=== PATIENT | male | born 1995 | race Caucasian/White ===

== ENCOUNTER 2018-01-26 12:42 | Emergency (ER) | payer MEDICAID, SELFPAY ==
[2018-01-26 12:44] VITALS: BP 130/72; PULSE 81; RESP 17; TEMP 37.1; O2SAT 96; BMI 18.5
--- NOTE | 2018-01-26 13:10 | ED.VISSUMM ---
- ER Visit Summary Date of Service: 01/26/18 Chief Complaint: [Rash] History of Present Illness: The patient is a 22 M presents to the emergency department with a rash that started yesterday. Patient states that the rash is slightly pruritic. Patient had a small patch on his right hip seem to clear but then came back today. Patient is concerned that this may be related to the Suboxone the patient is taking for history of heroin abuse. Patient states he has been clean since 2016. Patient states that he had his brand of Suboxone changed recently. Patient denies any recent illness. Denies any new soaps or detergents. [] Physical Examination: [HEENT-PERRLA, EOMI. Cranial nerves II through XII grossly intact. TMs clear. Mucous membranes moist. No adenopathy. Cardiovascular-regular rate and rhythm without murmur or ectopy Lungs-clear to auscultation, chest wall stable without crepitus or subcu emphysema Abdomen-normoactive bowel sounds, soft, nontender, no rebound or rigidity, no peritoneal signs. Extremities-intact ?4, normal range of motion, normal pulses, atraumatic] Skin-patient has a oval, salmon colored rash involving the buttocks and upper legs with some central clearing noted and cigarette paper flaking of the skin centrally. I feel the rash is consistent with pityriasis. Test Results: [None indicated] Emergency Department Course and Treatment: [None] Treatment Plan: [No treatment indicated Disposition] discharge to home in stable condition Impression: [Pityriasis rosea] This note was generated with [employer] dictation software. It may contain incorrect words, spelling, and punctuation that were not noted in review of the chart prior to signing ED Disposition - Plan for ED Patient: Chief Complaint: Rash Referrals: Mark Strange III, MD [Primary Care Provider] -
--- NOTE | 2018-01-26 13:13 | ED.DEP ---
ED Disposition - Plan for ED Patient: Chief Complaint: Rash Instructions: ED Pityriasis Rosea Referrals: Mark Strange III, MD [Primary Care Provider] -
[2018-01-26 13:25] VITALS: BP 127/89; PULSE 89; RESP 14; O2SAT 99
== END 2018-01-26 13:33 | disposition home or self-care (01) ==
LOC: ED 13:32
PROVIDERS: Emergency Provider Emergency Medicine; Family Provider Family Medicine; PCP Family Medicine
DX: L42 Pityriasis rosea (principal); F11.11 Opioid abuse, in remission; Z79.899 Other long term (current) drug therapy; Z86.19 Personal history of other infectious and parasitic diseases; Z72.0 Tobacco use
CPT/HCPCS: 99282

== ENCOUNTER 2018-06-28 16:32 | Emergency (ER) | payer MEDICAID, SELFPAY ==
[2018-06-28 16:34] VITALS: BP 141/99; PULSE 125; RESP 14; TEMP 36.6; O2SAT 99; BMI 21.6
--- NOTE | 2018-06-28 16:43 | ED.VISSUMM ---
- ER Visit Summary Date of Service: 06/28/18 Chief Complaint: Overdose History of Present Illness: The patient is a 22 M brought in by EMS after an opioid overdose. He has a history of use. EMS treated him with 2 mg's of Narcan intranasally and the patient became more alert. He has no complaints at this time. No respiratory symptoms. No pain. No suicidal ideation. No other significant medical history. Physical Examination: Tachycardic but otherwise vitals unremarkable. 99% on room air. Alert and oriented. No acute distress. Heart tachycardic but regular. Lungs clear throughout all shankar. Skin appears normal. Test Results: None indicated Emergency Department Course and Treatment: Patient will be monitored in the emergency department for an hour. No further respiratory or PLASTIC BOAT BUFFER symptoms. Patient will be referred for outpatient therapy. He is requesting discharge. Treatment Plan: As above Disposition: Discharged Impression: 1. Opioid overdose This note was generated with [employer] dictation software. It may contain incorrect words, spelling, and punctuation that were not noted in review of the chart prior to signing ED Disposition - Plan for ED Patient: Chief Complaint: Overdose Referrals: Mark Strange III, MD [Primary Care Provider] -
--- NOTE | 2018-06-28 16:45 | ED.DEP ---
ED Disposition - Plan for ED Patient: Chief Complaint: Overdose Instructions: ED Overdose Opiate Referrals: Mark Strange III, MD [Primary Care Provider] -
[2018-06-28 17:12] VITALS: BP 139/88; PULSE 86; RESP 16; O2SAT 98
== END 2018-06-28 17:13 | disposition home or self-care (01) ==
PROVIDERS: Emergency Provider Emergency Medicine
DX: T40.601A Poisoning by unspecified narcotics, accidental (unintentional), initial encounter (principal); R00.0 Tachycardia, unspecified; Y92.9 Unspecified place or not applicable
CPT/HCPCS: 99285

== ENCOUNTER 2018-09-04 11:18 | Emergency (ER) | payer MEDICAID, SELFPAY ==
[2018-09-04 11:19] VITALS: BP 138/93; PULSE 69; RESP 22; TEMP 36.7; O2SAT 100; BMI 20.3
[2018-09-04] MEDS: Dicyclomine 20 MG/2 ML Vial IM (11:53)
[2018-09-04 11:54] VITALS: RESP 18
--- NOTE | 2018-09-04 11:55 | ED.VISSUMM ---
- ER Visit Summary Date of Service: 09/04/18 Chief Complaint: Nausea, History of Present Illness: The patient is a 23 M presents to the emergency department nausea and vomiting. Patient has a history of opiate dependence. He is actually been on Suboxone for some time. He states that he did relapse and used heroin yesterday. He does not ejaculate. He states that today, he began to have withdrawal symptoms so he took 1 of his Suboxone. He states he felt like it made him worse. He has been nauseated, had vomiting, and had loose watery diarrhea. He is also had generalized myalgias and arthralgias. He denies any fevers or chills. He denies any chest pain. He denies any other systemic complaints. Physical Examination: Vital signs reviewed General: Well-nourished, well-developed Head: Normocephalic, atraumatic Eyes: Pupils equal and reactive, extraocular muscles intact Neck, supple, no lymphadenopathy Heart: Regular rate and rhythm Respiratory: No distress, clear bilaterally Abdomen: Soft, nontender, nondistended, no peritoneal signs Back: Nontender Extremities: Nontender, no edema, no cords Skin: Normal color no rash Neuro: Alert and oriented, no focal or lateralizing deficits Test Results: [] Emergency Department Course and Treatment: The patient presents to the emergency department with nausea and vomiting. I do feel that he is likely an opiate withdrawal that was probably worsened by his Suboxone as he was just using heroin. We had attempted to obtain IV access, but given the patient's significant history of IV drug abuse, he had a lot of scarring and we were unable to obtain IV access. The patient refused any more attempts. He was given IM Phenergan and Bentyl. He had some improvement of his nausea and cramping. He states he still felt very restless. He was given oral Ativan and was resting comfortably. The patient was able to eat and drink. At this time, he does not have interest in inpatient detox. He will be discharged with Bentyl and Phenergan. He he will follow-up with his outpatient detox as scheduled. Treatment Plan: [] Disposition: Discharge Impression: Opiate withdrawal This note was generated with [employer] dictation software. It may contain incorrect words, spelling, and punctuation that were not noted in review of the chart prior to signing ED Disposition - Plan for ED Patient: Chief Complaint: Substance Abuse Instructions: ED Withdrawal Narcotic Prescriptions: proMETHazine tablet [Phenergan] 25 mg PO Q6H PRN PRN #10 tab PRN Reason: Nausea Dicyclomine HCl [Bentyl] 20 mg PO TIDAC #20 cap Referrals: Care Physician,No Primary [Primary Care Provider] -
--- NOTE | 2018-09-04 13:15 | ED.RN ---
DUE TO PT HX OF HEROIN USE, THIS NURSE WAS UNABLE TO INITIATE PERIPHERAL IV. MEDIC EMERSON WAS ALSO UNABLE TO INITIATE PERIPHERAL IV. PER VERBAL ORDER OF DR. RIVERA, LABS WILL NOT BE DRAWN AND ALL MEDICATIONS WILL BE GIVEN IM ROUTE. ORDER CHANGED PER VERBAL ORDER. WILL CONTINUE TO MONITOR.
[2018-09-04 13:21] VITALS: RESP 16
[2018-09-04] MEDS: proMETHazine 25 MG/ML Syringe 12.5 MG IM (13:24)
[2018-09-04] MEDS: LORazepam 1 MG Tablet PO (13:40)
[2018-09-04 15:07] VITALS: BP 134/88; PULSE 74; RESP 14; O2SAT 98
== END 2018-09-04 15:08 | disposition home or self-care (01) ==
PROVIDERS: Emergency Provider Emergency Medicine
DX: F11.23 Opioid dependence with withdrawal (principal); Z79.899 Other long term (current) drug therapy
CPT/HCPCS: 96372; 99282; J7030; A4216

== ENCOUNTER 2018-09-05 15:28 | Observation (INO) | payer MEDICAID, SELFPAY ==
[2018-09-04 11:19] VITALS: BMI 20.3
[2018-09-05 15:41] VITALS: BMI 19.5
[2018-09-05 15:48] VITALS: BP 125/78; PULSE 110; RESP 18; TEMP 36.7; O2SAT 100
--- NOTE | 2018-09-05 15:59 | HP.PCM_ITS ---
<Michael Madison - Last Filed: 09/05/18 15:55> Problem List (1) Opiate withdrawal Status: Acute (2) Cirrhosis Status: Chronic (3) Hepatitis C Status: Chronic (4) Nicotine abuse Status: Chronic History of Present Illness Date of Admission: 09/05/18 Chief Complaint: opiate withdrawal The patient is a 23 year old M with a pmhx of hepatitis C with cirrhosis followed by Dr. Perez hepatology in [place], also with history of nicotine abuse, who presents to the hospital for assistance with detox and acute opiate withdrawal. He has been using heroin daily, he injects about 1 g/day into his right hand. He states he relapsed about March and has been using it daily since then. He smokes about 1 pack a day. He does not drink, he denies any other drug use. Currently he complains of nausea, vomited once this morning, back pain, headache, restlessness with leg cramping, anxiety, abdominal pain. He does not remember the last time he went through detox. He plans to pursue the [facility] upon discharge from the hospital, he is currently homeless and has been staying with friends, but he has been told that he can stay with his grandparents if he is clean. He has never been treated for his hep C. [] Past Medical History Past Medical History (Chronic Problems): Chronic Problems Cirrhosis (Chronic) Hepatitis C (Chronic) Nicotine abuse (Chronic) Allergies Sulfa (Sulfonamide Antibiotics) Allergy (Verified 09/04/18 11:26) Rash diphenhydramine [From Benadryl] Adverse Reaction (Verified 09/04/18 11:26) Other HEART RACING Home Medications: Ambulatory Orders Medication Instructions Recorded Buprenorphine HCl 1 tab PO BID 09/08/17 Dicyclomine HCl [Bentyl] 20 mg PO TIDAC #20 cap 09/04/18 proMETHazine tablet [Phenergan] 25 mg PO Q6H PRN PRN #10 tab 09/04/18 Surgical History: - - Hand surgery Psychiatric History: No pertinent psych hx Lives: Homeless Smoking Status: Current every day smoker Review of Systems Constitutional: Reports: Malaise. Denies: Chills, Fever, Weight Change HEENT: Reports: Head Aches. Denies: Sinus Congestion, Sinus Drainage Cardiovascular: Denies: Chest Pain, Edema, Light Headedness, Palpitations Respiratory: Denies: Cough, Shortness of Breath, Shortness of breath at rest, Sputum production Gastrointestinal: Reports: Abdominal Pain, Nausea, Vomiting Genitourinary: Denies: Dysuria Musculoskeletal: Denies: Joint Pain, Joint Tenderness Skin: Reports: - - Injection tracking right hand. Denies: Rash, Wounds Neurological: Denies: Numbness, Tingling, Focal weakness Psychiatric: Denies: Anxiety, Depression, Homicidal Ideations, Suicidal Ideations Hematologic/ Lymphatic: Denies: Easy Bruising, Easy Bleeding VTE Information - Inpt Only VTE Present on Admission: No VTE Mechan Device Prophylaxis: None VTE Pharm Prophylaxis ordered?: No Reason prophylaxis not ordered:: Procedure Not Indicated Patient Problems: Active and Suspected Problems Opiate withdrawal (Acute) - Physical Exam General: Alert, Oriented x3, Cooperative HEENT: Atraumatic, PERRLA, EOMI, Normocephalic Neck: Supple, No JVD, Negative Carotid Bruits Lungs: Clear to auscultation, Normal air movement Cardiovascular: Regular rate, No murmurs Abdomen: Bowel Sounds Present, Soft, Non Tender Extremities: No edema, Capillary Refill Less than 3 Seconds Skin: No rashes, No breakdown Musculoskeletal: No Tenderness to Palpation of Joints or Extremities Neurological: Cranial nerves II-XII grossly intact Psych/Mental Status: Depressed Vital Signs Temp Pulse Resp BP Pulse Ox 98.0 F 110 H 18 125/78 H 100 09/05/18 15:48 09/05/18 15:48 09/05/18 15:48 09/05/18 15:48 09/05/18 15:48 Oxygen Delivery Method Room Air Body Mass Index (BMI) 20.3 Finger Stick Blood Glucose 70 Assessment/Plan All Active Problems Opiate withdrawal (Acute) 1. Acute opiate withdrawal - injects about 1 g heroin daily since March. Current withdrawal symptoms include nausea, vomiting, back pain, abdominal pain, headache, anxiety, restlessness, leg cramping. Initiate opiate withdrawal protocol. Denies other drug use. 2. History of hep C with [id number] with Dr. Perez [place] have pathology, never treated. Obtain baseline labs. 3. Nicotine abuse-declines patch at this time. DVT prophylaxis: Early ambulation DC planning: Plans to pursue the [facility] and stay with his grandparents upon discharge. Patient is otherwise homeless. Medical stabilization day 1 of This patient was seen by Michael Madison PA-C under the supervision of Doctor Trung. <Rafi Nino E - Last Filed: 09/05/18 16:22> History of Present Illness The patient is a 23 year old M [] Past Medical History Allergies Sulfa (Sulfonamide Antibiotics) Allergy (Verified 09/04/18 11:26) Rash diphenhydramine [From Benadryl] Adverse Reaction (Verified 09/04/18 11:26) Other HEART RACING - Physical Exam Vital Signs Temp Pulse Resp BP Pulse Ox 98.0 F 110 H 18 125/78 H 100 09/05/18 15:48 09/05/18 15:48 09/05/18 15:48 09/05/18 15:48 09/05/18 15:48 Oxygen Delivery Method Room Air Weight: 125 lb Body Mass Index (BMI) 19.5 Finger Stick Blood Glucose 70 Assessment/Plan Hospitalist note: I am seeing this patient in conjunction with Michael Madison. I independently seen and examined the patient. History and physical reviewed and I concur with the above admission treatment plan. Patient seen and examined. Patient came in today to the new patient office requesting admission for acute opiate withdrawal for medical stabilization. Patient has been using IV heroin daily since March,. He was clean for 1 year and before that, he was IV heroin for almost 4 years. His last use of IV was therefore yesterday. He complains of abdominal pain, described as cramps, mild pain, 2-4 out of 10 in severity, not radiating, associated with nausea and he vomited once this morning and without aggravating or relieving factors. Also, he complains of back pain and discomfort, headache, anxiety and restlessness. At this time, he is slightly tachycardic, other vital signs are stable. - Physical Exam General: Alert, Oriented x3, Cooperative, No apparent distress. HEENT: Atraumatic, PERRLA, EOMI. Neck: Supple, No JVD, Negative Carotid Bruits, Trachea Midline, Thyroid Normal. Lungs: Clear to auscultation, Normal air movement, No rhonchi, No wheeze, No rales. Cardiovascular: Regular rate, Regular Rhythm, Normal S1, Normal S2, PMI Normal. Abdomen: Bowel Sounds Present, Soft, Non Tender, Non-Distended, No Hepato- splenomegaly. Extremities: No clubbing, No cyanosis, No edema Skin: No rashes, No breakdown Neurological: Neuro grossly intact, cranial nerves are intact, normal power and tone in all 4 limbs. Assessment and plan: #1 acute opiate withdrawal: Initiate [facility] protocol with tapering course of Subutex, as needed Bentyl, methocarbamol, Catapres, Vistaril, Mirapex and Zofran, CBC, CMP, urine drug screen, blood alcohol level. #2 other chronic medical problems including hepatitis C and tobacco abuse, plan as above. This note was generated with [employer] dictation software. It may contain incorrect words, spelling, and punctuation that were not noted in checking the note before signing. Code Visit Inpatient E&M: 58533 Init Hosp L2
[2018-09-05 16:00] VITALS: BP 125/78; PULSE 110; RESP 18; TEMP 36.7
[2018-09-05] MEDS: Pramipexole Di-HCl 0.25 MG Tablet PO (16:06)
[2018-09-05] MEDS: Ondansetron ODT 4 MG Tablet PO (16:06)
[2018-09-05] MEDS: cloNIDine HCl 0.1 MG Tablet PO (16:06)
[2018-09-05] MEDS: Methocarbamol 750 MG Tablet PO (16:06)
[2018-09-05] MEDS: Dicyclomine 10 MG Capsule 20 MG PO (16:06)
[2018-09-05] MEDS: Buprenorphine HCl 2 MG TAB.SUBL SL (16:07)
[2018-09-05] MEDS: hydrOXYzine PAM 25 MG Capsule 50 MG PO (16:07)
[2018-09-05 19:19] LABS: Absolute Lymphocyte Count 1.75 X10^3/ul (0.83-4.51); Absolute Neutrophil Count 10.3 X10^3/uL (2.0-7.7); Basophil# 0.03 X10^3/uL; Basophil% 0.2 % (0-1); Eosinophil# 0.05 X10^3/uL; Eosinophils% 0.4 % (0-5); Hematocrit 43.7 % (40-54); Hemoglobin 14.7 g/dl (13.0-16.5); Lymphocyte # 1.75 X10^3/ul (4.0); Lymphocyte % 13.6 % (19-41); Mean Corp Hgb Conc 33.6 g/gl (32-36); Mean Corpuscular Hgb 30.1 pg (27.0-32.0); Mean Corpuscular Volume 89.4 fL (80-94); Mean Platelet Vol. 9.6 fl (6.2-12.0); Monocyte% 5.5 % (0-10); Neutrophil # 10.27 X10^3/uL (2.7-7.7); Neutrophil % 80.1 % (47-70); Platelet Count 268 K/mm3 (150-450); RBC Distribution Width CV 13.3 % (11.6-14.6); RBC Distribution Width SD 43.4 fl (35.1-43.9); Red Blood Count 4.89 M/mm3 (4.6-6.2); White Blood Count 12.8 K/mm3 (4.4-11.0)
[2018-09-05 19:21] LABS: POSITIVE COUNT NO; POSITIVE DIFFERENTIAL NO; POSITIVE MORPHOLOGY NO
[2018-09-05 19:24] LABS: International Normalized Ratio 1.1; Prothrombin Time (Protime)PT. 13.7 SECONDS (11.7-14.9)
[2018-09-05 19:53] LABS: ALB/GLOB Ratio 0.9 RATIO (0.9-2.4); AST(SGOT) 70 U/L (15-37); Alanine Aminotransfer ALT/SGPT 102 U/L (16-61); Albumin, Serum 3.9 g/dL (3.2-5.0); Alkaline Phosphatase 79 U/L (45-117); Anion Gap 9 (5-15); BUN 18 mg/dL (7-18); BUN/Creat Ratio 25.3 RATIO (10-20); Calcium,Total 9.4 mg/dL (8.5-10.1); Chloride 107 mmol/L (98-107); Creatinine, Serum 0.71 mg/dL (0.70-1.30); EST Glomerular Filtration Rate 144 mL/min (>60); Est Glom Filt Rate - Afr Amer 175 mL/min (>60); Estimated Creatinine Clearance 128.66 ml/min; Globulin 4.3 g/dL (2.2-4.2); Glucose 130 mg/dL (74-106); Protein, Total 8.2 g/dL (6.4-8.2); Sodium Level 140 mmol/L (136-145)
[2018-09-05 20:53] VITALS: BP 105/56; PULSE 72; RESP 16; TEMP 36.7
[2018-09-06] VITALS (8 sets, daily range): BP systolic 102–120; BP diastolic 62–68; PULSE 62–74; RESP 16; TEMP 36.5–37.1; O2SAT 99
[2018-09-06] MEDS: Buprenorphine HCl 2 MG TAB.SUBL SL ×3 (00:11→15:43)
[2018-09-06] MEDS: Dicyclomine 10 MG Capsule 20 MG PO ×2 (00:11→14:06)
[2018-09-06] MEDS: Ondansetron ODT 4 MG Tablet PO ×2 (00:11→08:36)
[2018-09-06] MEDS: Methocarbamol 750 MG Tablet PO ×4 (00:11→22:07)
[2018-09-06] MEDS: hydrOXYzine PAM 25 MG Capsule 50 MG PO ×4 (00:11→22:07)
[2018-09-06 04:42] LABS: Amphetamine Urine VISTA NEGATIVE (<1000 ng/mL); Barbiturate Urine VISTA NEGATIVE (< 200 ng/mL); Benzodiazepine Urine VISTA NEGATIVE (< 200 ng/mL); Cocaine Urine VISTA NEGATIVE (< 300 ng/mL); Ecstacy Urine VISTA NEGATIVE (< 500 ng/mL); Methadone Urine VISTA NEGATIVE (< 300 ng/mL); PCP Urine VISTA NEGATIVE (< 25 ng/mL); THC Urine VISTA NEGATIVE (< 50 ng/mL); Vista UDS pH Range 6
[2018-09-06] MEDS: Pramipexole Di-HCl 0.25 MG Tablet PO (08:36)
--- NOTE | 2018-09-06 12:18 | PN_ITS ---
<Michael Madison - Last Filed: 09/06/18 12:17> Patient Problems: Active and Suspected Problems Opiate withdrawal (Acute) Subjective: Pt states he feels much better than yesterday. Complains of mild nausea and back pain. No fever/chills. No swelling at injection sites, no rash. - Physical Exam General: Alert, Oriented x3, Cooperative HEENT: Atraumatic, PERRLA, EOMI, Normocephalic Neck: Supple, No JVD, Negative Carotid Bruits Lungs: Clear to auscultation, Normal air movement Cardiovascular: Regular rate, No murmurs Abdomen: Bowel Sounds Present, Soft, Non Tender Extremities: No edema, Capillary Refill Less than 3 Seconds Skin: No rashes, No breakdown Musculoskeletal: No Tenderness to Palpation of Joints or Extremities Neurological: Cranial nerves II-XII grossly intact Psych/Mental Status: Normal Affect, Appropriate, Alert and oriented to time, place, person, mood and affect Vital Signs Temp Pulse Resp BP Pulse Ox 98.0 F 74 16 106/62 99 09/06/18 08:51 09/06/18 08:51 09/06/18 08:51 09/06/18 08:51 09/06/18 08:40 Oxygen Delivery Method Room Air Weight: 125 lb Body Mass Index (BMI) 19.5 Finger Stick Blood Glucose 70 Intake and Output for Last 24 Hours 09/04/18 09/05/18 09/06/18 23:59 23:59 23:59 Intake Total 240 / 240 1840 / 1840 Balance 240 / 240 1840 / 1840 Laboratory Tests Past 24 Hrs 09/05/18 09/05/18 09/05/18 18:46 18:46 18:46 WBC 12.8 H RBC 4.89 Hgb 14.7 Hct 43.7 MCV 89.4 MCH 30.1 MCHC 33.6 RDW 13.3 RDW Differential 43.4 Plt Count 268 MPV 9.6 Immature Gran % (Auto) 0.200 Neut % (Auto) 80.1 H Lymph % (Auto) 13.6 L [place] % (Auto) 5.5 Eos % (Auto) 0.4 Baso % (Auto) 0.2 Absolute Neuts (auto) 10.3 H Absolute Lymphs (auto) 1.75 Total Counted Not Reportable PT 13.7 INR 1.1 Sodium 140 Potassium 4.0 Chloride 107 Carbon Dioxide 24.0 Anion Gap 9 BUN 18 Creatinine 0.71 Estim Creat Clear Calc 128.66 Est GFR (MDRD) Af Amer 175 Est GFR (MDRD) Non-Af 144 BUN/Creatinine Ratio 25.3 H Glucose 130 H Calcium 9.4 Total Bilirubin 0.40 AST 70 H ALT 102 H Alkaline Phosphatase 79 Total Protein 8.2 Albumin 3.9 Globulin 4.3 H Albumin/Globulin Ratio 0.9 Urine Opiates Screen Urine Methadone Screen Ur Barbiturates Screen Ur Phencyclidine Scrn Ur Amphetamines Screen U Methamphetamin-MDMA U Benzodiazepines Scrn Urine Cocaine Screen U Cannabinoids Screen Ur Drug Screen Comment Ethyl Alcohol 09/05/18 09/06/18 18:46 04:00 WBC RBC Hgb Hct MCV MCH MCHC RDW RDW Differential Plt Count MPV Immature Gran % (Auto) Neut % (Auto) Lymph % (Auto) [place] % (Auto) Eos % (Auto) Baso % (Auto) Absolute Neuts (auto) Absolute Lymphs (auto) Total Counted PT INR Sodium Potassium Chloride Carbon Dioxide Anion Gap BUN Creatinine Estim Creat Clear Calc Est GFR (MDRD) Af Amer Est GFR (MDRD) Non-Af BUN/Creatinine Ratio Glucose Calcium Total Bilirubin AST ALT Alkaline Phosphatase Total Protein Albumin Globulin Albumin/Globulin Ratio Urine Opiates Screen NEGATIVE Urine Methadone Screen NEGATIVE Ur Barbiturates Screen NEGATIVE Ur Phencyclidine Scrn NEGATIVE Ur Amphetamines Screen NEGATIVE U Methamphetamin-MDMA NEGATIVE U Benzodiazepines Scrn NEGATIVE Urine Cocaine Screen NEGATIVE U Cannabinoids Screen NEGATIVE Ur Drug Screen Comment Ethyl Alcohol 4.0 Medical Necessity - Tobacco Use Smoking Status: Current every day smoker Assessment/Plan All Active Problems Opiate withdrawal (Acute) 1. Acute opiate withdrawal - injects about 1 g heroin daily since March. Current withdrawal symptoms include nausea, and back pain. Continue opiate withdrawal protocol. Denies other drug use. 2. History of hep C with [id number]-it with Dr. Perez [place] have pathology, never treated. Obtain baseline labs. 3. Nicotine abuse-declines patch at this time. DVT prophylaxis: Early ambulation DC planning: Plans to pursue the [facility] and stay with his grandparents upon discharge. Patient is otherwise homeless. Medical stabilization day 2 of This patient was seen by Michael Madison PA-C under the supervision of Doctor Couch. <Macy Couch - Last Filed: 09/06/18 14:52> - Physical Exam Vital Signs Temp Pulse Resp BP Pulse Ox 98.2 F 74 16 120/67 99 09/06/18 14:07 09/06/18 14:07 09/06/18 14:07 09/06/18 14:07 09/06/18 14:07 Oxygen Delivery Method Room Air Weight: 125 lb Body Mass Index (BMI) 19.5 Finger Stick Blood Glucose 70 Intake and Output for Last 24 Hours 09/04/18 09/05/18 09/06/18 23:59 23:59 23:59 Intake Total 240 / 240 1840 / 1840 Balance 240 / 240 1840 / 1840 Laboratory Tests Past 24 Hrs 09/05/18 09/05/18 09/05/18 18:46 18:46 18:46 WBC 12.8 H RBC 4.89 Hgb 14.7 Hct 43.7 MCV 89.4 MCH 30.1 MCHC 33.6 RDW 13.3 RDW Differential 43.4 Plt Count 268 MPV 9.6 Immature Gran % (Auto) 0.200 Neut % (Auto) 80.1 H Lymph % (Auto) 13.6 L [place] % (Auto) 5.5 Eos % (Auto) 0.4 Baso % (Auto) 0.2 Absolute Neuts (auto) 10.3 H Absolute Lymphs (auto) 1.75 Total Counted Not Reportable PT 13.7 INR 1.1 Sodium 140 Potassium 4.0 Chloride 107 Carbon Dioxide 24.0 Anion Gap 9 BUN 18 Creatinine 0.71 Estim Creat Clear Calc 128.66 Est GFR (MDRD) Af Amer 175 Est GFR (MDRD) Non-Af 144 BUN/Creatinine Ratio 25.3 H Glucose 130 H Calcium 9.4 Total Bilirubin 0.40 AST 70 H ALT 102 H Alkaline Phosphatase 79 Total Protein 8.2 Albumin 3.9 Globulin 4.3 H Albumin/Globulin Ratio 0.9 Urine Opiates Screen Urine Methadone Screen Ur Barbiturates Screen Ur Phencyclidine Scrn Ur Amphetamines Screen U Methamphetamin-MDMA U Benzodiazepines Scrn Urine Cocaine Screen U Cannabinoids Screen Ur Drug Screen Comment Ethyl Alcohol 09/05/18 09/06/18 18:46 04:00 WBC RBC Hgb Hct MCV MCH MCHC RDW RDW Differential Plt Count MPV Immature Gran % (Auto) Neut % (Auto) Lymph % (Auto) [place] % (Auto) Eos % (Auto) Baso % (Auto) Absolute Neuts (auto) Absolute Lymphs (auto) Total Counted PT INR Sodium Potassium Chloride Carbon Dioxide Anion Gap BUN Creatinine Estim Creat Clear Calc Est GFR (MDRD) Af Amer Est GFR (MDRD) Non-Af BUN/Creatinine Ratio Glucose Calcium Total Bilirubin AST ALT Alkaline Phosphatase Total Protein Albumin Globulin Albumin/Globulin Ratio Urine Opiates Screen NEGATIVE Urine Methadone Screen NEGATIVE Ur Barbiturates Screen NEGATIVE Ur Phencyclidine Scrn NEGATIVE Ur Amphetamines Screen NEGATIVE U Methamphetamin-MDMA NEGATIVE U Benzodiazepines Scrn NEGATIVE Urine Cocaine Screen NEGATIVE U Cannabinoids Screen NEGATIVE Ur Drug Screen Comment Ethyl Alcohol 4.0 Assessment/Plan Patient seen by Michael Madison PA-C under my supervision. Patient admitted with a history of opiate dependence and is for detox for acute opiate withdrawal. Patient seen and examined. Complained of a bit of nausea and back pain but denied any fever or chills, cough or chest pain, and abdominal cramping, and vomiting or diarrhea. Review of systems otherwise negative. Labs and vitals reviewed. On examination Vitals: Vital Signs Height 5 ft 7 in Weight: 125 lb Weight in Pounds 125.0 lbs Pulse Ox 99 Temperature 98.2 F Pulse Rate 74 Respiratory Rate 16 Blood Pressure 120/67 Blood Pressure Position Semi-Fowlers General: Alert, Oriented x3, Cooperative HEENT: Atraumatic, PERRLA, EOMI, Normocephalic Neck: Supple, No JVD, Negative Carotid Bruits Lungs: Clear to auscultation, Normal air movement Cardiovascular: Regular rate, No murmurs Abdomen: Bowel Sounds Present, Soft, Non Tender Extremities: No edema, Capillary Refill Less than 3 Seconds Skin: No rashes, No breakdown Musculoskeletal: No Tenderness to Palpation of Joints or Extremities Neurological: Cranial nerves II-XII grossly intact Psych/Mental Status: Normal Affect, Appropriate, Alert and oriented to time, place, person, mood and affect Plan is to continue with opiate withdrawal protocol as per [facility] protocol. Plan is for patient to be discharged to his grandparents home provided he remains clean. He also has hep C and is treatment na?ve and is follow-up with his hl7 developer in [place] once he is discharged. Agree with note, assessment and plan as per Michael Los PA-C Code Visit Inpatient E&M: 79037 Subs Hosp L2
--- NOTE | 2018-09-06 15:57 | CHAPLAIN ---
Type of Pastoral Visit _x__ Initial Visit ___ Follow-up Visit ___ On-call Visit ___ General Patient Visit ___ Spiritual Assessment ___ Family Conference ___ Bereavement ___ Rapid Response ___ Code Blue ___ Other (describe below) Pastoral Care Referral From _x__ Patient ___ Family ___ Nurse ___ Physician ___ Security Tech ___ Automatic Operator ___ Other (describe below) Sacrament/Intervention _x__ Active listening ___ Anointing ___ Yarsanism _x__ Bereavement ___ Communion _x__ Brianna exploration ___ _x__ Life review _x__ Prayer ___ Reconciliation ___ Sacrament of Sick _x__ Supportive presence ___ Wedding ___ Other (describe below) Pastoral Comments patient tells this financial systems manager about his brianna heritage, family background, and life story; pt shares feelings of loneliness, guilt, shame, fear, and separation from God; pt's brother was killed in a car accident about one year ago; pt normally tries to handle addiction and personal issues on his own; pt had a season of months when he was clean but relapsed in March according to his story; pt was open to spiritual support and prayer; pt would benefit from follow up
--- NOTE | 2018-09-06 19:24 | NURSING ---
during shift change pt attempted to leave floor another nurse talked to pt he cant leave the floor and if he leaves he will no longer be in the program. during bedside hand off it was noted that his room smell like smoke ad the bathroom smelled heavily/ severely like smoke. told pt there are oxygen in the room and smoking can pose a fire hazard. reminded him that his contract with [employer] included not smoking. nicotine path applied to pt arm per pt request.
[2018-09-06] MEDS: cloNIDine HCl 0.1 MG Tablet PO (22:07)
--- NOTE | 2018-09-07 | NURSING ---
Girlfriend here to visit patient. equipment maint tech varghese noted girlfriend in bed with patient. She offered blankets to the girlfriend and asked her to sleep in the chair, not with the patient.
[2018-09-07 00:15] VITALS: BP 105/60; PULSE 71; RESP 18; TEMP 36.7
[2018-09-07] MEDS: Buprenorphine HCl 2 MG TAB.SUBL SL ×2 (00:19→07:45)
--- NOTE | 2018-09-07 00:30 | NURSING ---
in room to give meds to pt, female in bed with pt. asked female to sleep in chair, she got up and went to chair.
--- NOTE | 2018-09-07 04:12 | NURSING ---
during nursing rounds, pt and female sleeping in bed together.
[2018-09-07] MEDS: Methocarbamol 750 MG Tablet PO (07:47)
--- NOTE | 2018-09-07 09:46 | NURSING ---
Patient left unit at this time, states he is leaving floor to smoke. Pt instructed that he is not to leave the unit for any reason. Dr. Edmondson aware and states that if he leaves the unit again he will be discharged. Patient informed of this.
--- NOTE | 2018-09-07 10:10 | NURSING ---
Patient out to nurse's station, states that he would like to check out. This nurse encouraged patient to stay, but patient adamant that he is leaving. AMA form signed, Dr. Edmondson aware.
--- NOTE | 2018-09-07 10:13 | PCM.DC.SUM ---
Discharge Date and Diagnosis Date of Admission: 09/05/18 Date of Discharge: 09/07/18 - Primary Discharge Diagnosis 1. Acute opioid withdrawal - Secondary Discharge Diagnosis Chronic Problems Cirrhosis (Chronic) Hepatitis C (Chronic) Nicotine abuse (Chronic) Hospital Course and Treatment Imaging Results: none none Operations: None Procedures: None Summary of Care Provided: The patient is a 23 year old M with a history of chronic opioid addiction starting at age 15. He presented to the hospital on 09/05/2018 complaining of nausea, vomiting, headache, restless leg and abdominal pain. He has recently visited an outpatient program and was given a prescription for Suboxone but did not take it for the first several days. He uses heroin daily. He decided to take Suboxone on Tuesday after using heroin and promptly went into withdrawal. He was admitted to the hospital on the [facility] protocol for acute opiate withdrawal. On the date of discharge he denied diarrhea, abdominal pain, nausea, vomiting, sweating. He slept well the preceding night. He requested to be discharged however I informed him that we generally keep patients for 72 hours. He did not know what his plan for discharge was and he has no Suboxone at home. I strongly encouraged him to stay and talk with the [employer] branch sales and service representative in the AM to to arrange for Suboxone as OP. He left his room on 2 occasions to go outside and smoke despite being admonished that he was not permitted to leave the floor. He then signed out AGAINST MEDICAL ADVICE. He was encouraged to return to the hospital if he changed his mind. Objective: PHYSICAL EXAM: GENERAL: alert, oriented X 3, Cooperative, NAD, not diaphoretic, somewhat pale ORAL: moist mucosa, no mucosal lesions NECK: No JVD, supple, trachea midline LUNGS: CTA, symmetric chest expansion HEART: RRR, Normal S1 and S2, no rub, no gallop, no murmur ABDOMEN: soft, NT, ND, BS present, no guarding with palpation EXTREMITIES: no edema, no cyanosis, no calf tenderness SKIN: No rashes, no breakdown NEUROLOGIC: no focal neurologic deficits PSYCH: appropriate, normal affect, pleasant - Physical Exam Vital Signs Temp Pulse Resp BP Pulse Ox 98.1 F 71 18 105/60 99 09/07/18 00:15 09/07/18 00:15 09/07/18 00:15 09/07/18 00:15 09/06/18 14:07 Oxygen Delivery Method Room Air Weight: 125 lb 0.034 oz Body Mass Index (BMI) 19.5 Finger Stick Blood Glucose 70 Intake and Output for Last 24 Hours 09/05/18 09/06/18 09/07/18 23:59 23:59 23:59 Intake Total 240 / 240 2200 / 2200 Balance 240 / 240 2200 / 2200 Home Medications: Medications to take at Discharge Buprenorphine HCl 1 tab PO BID 09/08/17 Dicyclomine HCl [Bentyl] 20 mg PO TIDAC #20 cap 09/04/18 proMETHazine tablet [Phenergan] 25 mg PO Q6H PRN PRN #10 tab 09/04/18 Primary Care Physician: Care Physician,No Primary [Primary Care Provider] - Medical Necessity - Tobacco Use Smoking Status: Current every day smoker Meaningful Use Info Meaningful Use Diagnoses (Choose all that apply): None applicable Code Visit Inpatient E&M: 80002 Disch Hosp
--- NOTE | 2018-09-07 10:13 | NURSING ---
Pt resting in bed with girlfriend in bed sleeping. Flat affect and kept pulling covers over his head. He is given his am dose of subutex and later seen walking off the floor to smoke. Pt was notified of the rules with voluntary admission to [facility].Refused to comply . Charge nurse into see pt and re-direct him to the rules per policy pt signed AMA papers and has left the floor. Dr. Edmondson notified.
--- NOTE | 2018-09-07 10:20 | DS.PCM_ITS ---
Discharge Date and Diagnosis Date of Admission: 09/05/18 Date of Discharge: 09/07/18 - Primary Discharge Diagnosis 1. Acute opioid withdrawal - Secondary Discharge Diagnosis Chronic Problems Cirrhosis (Chronic) Hepatitis C (Chronic) Nicotine abuse (Chronic) Hospital Course and Treatment Imaging Results: none none Operations: None Procedures: None Summary of Care Provided: The patient is a 23 year old M with a history of chronic opioid addiction starting at age 15. He presented to the hospital on 09/05/2018 complaining of nausea, vomiting, headache, restless leg and abdominal pain. He has recently visited an outpatient program and was given a prescription for Suboxone but did not take it for the first several days. He uses heroin daily. He decided to take Suboxone on Tuesday after using heroin and promptly went into withdrawal. He was admitted to the hospital on the [facility] protocol for acute opiate with drawal. On the date of discharge he denied diarrhea, abdominal pain, nausea, vomiting, sweating. He slept well the preceding night. He requested to be discharged however I informed him that we generally keep patients for 72 hours. He did not know what his plan for discharge was and he has no Suboxone at home. I strongly encouraged him to stay and talk with the [employer] direct customer service representative in the AM to to arrange for Suboxone as OP. He left his room on 2 occasions to go outside and smoke despite being admonished that he was not permitted to leave the floor. He then signed out AGAINST MEDICAL ADVICE. He was encouraged to return to the hospital if he changed his mind. Objective: PHYSICAL EXAM: GENERAL: alert, oriented X 3, Cooperative, NAD, not diaphoretic, somewhat pale ORAL: moist mucosa, no mucosal lesions NECK: No JVD, supple, trachea midline LUNGS: CTA, symmetric chest expansion HEART: RRR, Normal S1 and S2, no rub, no gallop, no murmur ABDOMEN: soft, NT, ND, BS present, no guarding with palpation EXTREMITIES: no edema, no cyanosis, no calf tenderness SKIN: No rashes, no breakdown NEUROLOGIC: no focal neurologic deficits PSYCH: appropriate, normal affect, pleasant - Physical Exam Vital Signs Temp Pulse Resp BP Pulse Ox 98.1 F 71 18 105/60 99 09/07/18 00:15 09/07/18 00:15 09/07/18 00:15 09/07/18 00:15 09/06/18 14:07 Oxygen Delivery Method Room Air Weight: 125 lb 0.034 oz Body Mass Index (BMI) 19.5 Finger Stick Blood Glucose 70 Intake and Output for Last 24 Hours 09/05/18 09/06/18 09/07/18 23:59 23:59 23:59 Intake Total 240 / 240 2200 / 2200 Balance 240 / 240 2200 / 2200 Home Medications: Medications to take at Discharge Buprenorphine HCl 1 tab PO BID 09/08/17 Dicyclomine HCl [Bentyl] 20 mg PO TIDAC #20 cap 09/04/18 proMETHazine tablet [Phenergan] 25 mg PO Q6H PRN PRN #10 tab 09/04/18 Primary Care Physician: Care Physician,No Primary [Primary Care Provider] - Medical Necessity - Tobacco Use Smoking Status: Current every day smoker Meaningful Use Info Meaningful Use Diagnoses (Choose all that apply): None applicable Code Visit Inpatient E&M: 64019 Disch Hosp
== END 2018-09-07 10:12 | disposition left against medical advice (07) | DRG 770 ==
PROVIDERS: Admitting Provider Hospitalist; Referring Provider Hospitalist; Visit Provider Internal Medicine
DX: F11.23 Opioid dependence with withdrawal (principal); F17.210 Nicotine dependence, cigarettes, uncomplicated; Z59.0 Homelessness; B18.2 Chronic viral hepatitis C; K74.60 Unspecified cirrhosis of liver
CPT/HCPCS: 36415; 80053; 80307; 80320; 85025; 85610; 96372; 99218; 99282; 99406; J7030; A4216; G0378; G0379; G0480

== ENCOUNTER 2018-12-12 16:24 | Emergency (ER) | payer MEDICAID, SELFPAY ==
[2018-09-05 15:41] VITALS: BMI 19.5
[2018-12-12 16:26] VITALS: TEMP 36.9; BMI 23.1
[2018-12-12 16:27] VITALS: BP 154/101; PULSE 105; RESP 16; TEMP 36.9; O2SAT 95; BMI 24.6
--- NOTE | 2018-12-12 16:55 | ED.DCSUM_ITS ---
- ER Visit Summary Date of Service: 12/12/18 Chief Complaint: Unresponsive History of Present Illness: The patient is a 23 M who presents with unresponsive episode. Patient was found by police. Patient was given Narcan. Patient was given a total of 12 mg of Narcan prior to arrival. Patient woke up after this. Patient states he does not remember what happened today. Patient denies using drugs. Patient denies any complaints at the present time. Physical Examination: Vital signs are stable. Patient is afebrile. Patient is in no acute distress. Oral mucosa is pink and moist. Neck is supple. Trachea is midline. There is no JVD noted. Heart was regular rate and rhythm. Lungs are clear and equal bilateral. Abdomen is soft. Bowel sounds are normal. There is no tenderness. There is no guarding noted. Skin is warm dry. Cranial nerves II through XII are intact. There are no focal motor or sensory deficits noted. The remaining physical exam is within normal limits. Test Results: CBC and basic metabolic profile were obtained and were normal. Emergency Department Course and Treatment: Patient was given IV fluids. Patient was awake and alert throughout his emergency department stay. Patient had no further episodes of unresponsiveness. Patient was ambulating in the emergency department without difficulty. Patient was instructed to stop using opiates. Patient was instructed to follow-up with a primary care physician in 7-10 days. Disposition: Discharge home Impression: Opiate overdose This note was generated with [employer] dictation software. It may contain incorrect words, spelling, and punctuation that were not noted in review of the chart prior to signing ED Disposition - Plan for ED Patient: Disposition: Home or Assisted Living Diagnosis: Opiate overdose Instructions: ED Overdose Opiate Referrals: Care Physician,No Primary [Primary Care Provider] -
[2018-12-12 17:54] LABS: Absolute Lymphocyte Count 1.66 X10^3/ul (0.83-4.51); Absolute Neutrophil Count 6.3 X10^3/uL (2.0-7.7); Basophil# 0.04 X10^3/uL; Basophil% 0.5 % (0-1); Eosinophil# 0.11 X10^3/uL; Eosinophils% 1.3 % (0-5); Hematocrit 44.1 % (40-54); Hemoglobin 15.3 g/dl (13.0-16.5); Lymphocyte # 1.66 X10^3/ul (4.0); Lymphocyte % 19.1 % (19-41); Mean Corp Hgb Conc 34.7 g/gl (32-36); Mean Corpuscular Volume 89.5 fL (80-94); Mean Platelet Vol. 9.1 fl (6.2-12.0); Monocyte# 0.51 X10^3/uL; Monocyte% 5.9 % (0-10); Neutrophil # 6.33 X10^3/uL (2.7-7.7); Platelet Count 145 K/mm3 (150-450); RBC Distribution Width CV 13.5 % (11.6-14.6); Red Blood Count 4.93 M/mm3 (4.6-6.2); White Blood Count 8.7 K/mm3 (4.4-11.0)
[2018-12-12 17:56] LABS: POSITIVE COUNT NO; POSITIVE DIFFERENTIAL NO; POSITIVE MORPHOLOGY NO
[2018-12-12] MEDS: 0.9% Normal Saline 1,000 ML 1000 ML IV (17:57)
[2018-12-12 18:11] LABS: Anion Gap 9 (5-15); BUN 13 mg/dL (7-18); BUN/Creat Ratio 13.2 RATIO (10-20); Calcium,Total 9.1 mg/dL (8.5-10.1); Chloride 102 mmol/L (98-107); Creatinine, Serum 0.99 mg/dL (0.70-1.30); EST Glomerular Filtration Rate 99 mL/min (>60); Est Glom Filt Rate - Afr Amer 120 mL/min (>60); Estimated Creatinine Clearance 103.83 ml/min; Glucose 91 mg/dL (74-106); Potassium 3.2 mmol/L (3.5-5.1); Sodium Level 138 mmol/L (136-145)
[2018-12-12 18:47] VITALS: BP 134/78; PULSE 82; RESP 16; O2SAT 98
== END 2018-12-12 19:00 | disposition home or self-care (01) ==
PROVIDERS: Emergency Provider Emergency Medicine
DX: T40.601A Poisoning by unspecified narcotics, accidental (unintentional), initial encounter (principal); Y92.9 Unspecified place or not applicable; Z72.0 Tobacco use
CPT/HCPCS: 80048; 85025; 96360; 99285; J7030; A4216